=== PATIENT | male | born 1955 | race Caucasian/White ===

== ENCOUNTER → 2019-04-13 07:31 | Outpatient (CLI) | payer SELFPAY ==
--- NOTE | 2019-04-13 | DI.ECHO.S_ITS ---
[facility]---------+ [facility] +---------+ : : [address] : [place] [place] : : : : [id number] : : : : Phone: [phone]---------+ Echocardiogram Report + + :Name: BRIAN CORNELIUS Study Date: 04/13/2019 Height: 72 in : :[facility] Exam Location: [facility] Weight: 220 lb : : Gender: Male BSA: 2.2 m2 : :: 1955 Age: 63 yrs BP: 148/85 mmHg: :Reason For Study: EDEMA : : Performed By: Prateek Miranda : :Referring: NADIA PANDEY : + + Interpretation Summary Left ventricular systolic function is normal without focal wall motion abnormalities with the ejection fraction visually estimated to be 60-65%. There is mild concentric left ventricular hypertrophy. Diastolic function could not be accurately assessed due to contradictory data. The right ventricle is normal in size and function. The right ventricular systolic pressure is estimated to be at least 24 mmHg based on an estimated right atrial pressure of 3 mm Hg. The left atrium is severely dilated and the right atrium is moderate to severely dilated. There is mild tricuspid regurgitation but no other significant valvular heart disease. The ascending aorta is mildly enlarged. Procedure: A two-dimensional transthoracic echocardiogram with color flow and Doppler was performed. The study quality was technically adequate. There is no prior echocardiogram noted for this patient. The patient was in normal sinus rhythm during the exam. Left Ventricle: The left ventricle is normal in size. There is mild concentric left ventricular hypertrophy. Left ventricular systolic function is normal without focal wall motion abnormalities. The ejection fraction is estimated to be 60-65%. Diastolic function could not be accurately assessed due to contradictory data. Right Ventricle: The right ventricle is normal in size and function. Atria: The left atrium is severely dilated. The right atrium is moderate to severely dilated. The interatrial septum is intact with no evidence for an atrial septal defect. Mitral Valve: There is mild mitral annular calcification. The mitral valve leaflets are slightly calcified. There is trace mitral regurgitation. Aortic Valve: The aortic valve is trileaflet. The aortic valve is slightly calcified. The aortic valve opens well. No aortic regurgitation is present. Tricuspid Valve: The tricuspid valve is normal in structure and function. There is mild tricuspid regurgitation. The right ventricular systolic pressure is estimated to be at least 24 mmHg based on an estimated right atrial pressure of 3 mm Hg. Pulmonic Valve: The pulmonic valve is normal in structure and function. There is trace pulmonic regurgitation. There is no other significant valvular heart disease. Great Vessels: The aortic root is normal size. The ascending aorta is mildly enlarged. The pulmonary artery is normal size. The IVC is of normal diameter and collapses greater than 50% with a sniff. This suggests a low right atrial pressure of 3 mm Hg. Pericardium/ Pleura There is no pericardial effusion. There is no pleural effusion. MMode/2D Measurements & Calculations LVIDd: 5.6 cm LVOT diam: 2.3 cm LVIDs: 3.1 cm Ao root diam: 3.7 cm FS: 44.1 % Aortic Jxn: 3.2 cm EPSS: 0.34 cm asc Aorta Diam: 3.8 cm IVSd: 1.2 cm Ao Arch Diam (Prox Trans): 2.5 cm LVPWd: 1.1 cm LV wheatley. diameter/BSA (cm/m^2): 2.5 LV sys. diameter/BSA (cm/m^2): 1.4 LA dimension: 4.9 cm RA long axis: 5.6 cm LA A2 area: 30.5 cm2 RA area: 26.1 cm2 LA A4 area: 28.4 cm2 RA vol: 103.4 ml LA length (vol): 6.2 cm RA : 46.6 ml/m2 LA vol: 118.4 ml IVC diam: 2.1 cm LA vol index: 53.4 ml/m2 Doppler Measurements & Calculations Ao V2 max: 135.6 cm/sec LVOT Max Uzair: 124.9 cm/sec Ao V2 mean: 95.3 cm/sec LV V1 max P.2 mmHg Ao max P.4 mmHg LV V1 VTI: 23.0 cm Ao mean P.0 mmHg RAYNA(I,D): 3.5 cm2 Ao V2 VTI: 27.0 cm RAYNA(V,D): 3.8 cm2 sev ratio: 0.85 RAYNA indexed to BSA (cm^2/m^2): 1.6 MV E max uzair: 80.7 cm/sec TR max uzair: 228.8 cm/sec MV A max uzair: 74.4 cm/sec TR max P.9 mmHg MV E/A: 1.1 PA V2 max: 73.4 cm/sec Med Peak E' Uzair: 6.8 cm/sec PA V2 mean: 56.9 cm/sec E/E' med: 11.8 PA mean P.4 mmHg Lat Peak E' Uzair: 6.7 cm/sec PA pr(Accel): 39.1 mmHg E/E' lat: 12.0 PA Accel Time: 0.09 sec E/e' average: 11.9 MV dec time: 0.20 sec SV(OT): 94.6 ml Reading Physician:LOLA
== END ==
PROVIDERS: PCP Family Medicine; Visit Provider Student in an Organized Health Care Education/Training Program
DX: I07.1 Rheumatic tricuspid insufficiency (principal); R60.0 Localized edema; I77.89 Other specified disorders of arteries and arterioles
CPT/HCPCS: 93306